=== PATIENT | male | born 1955 | race Caucasian/White ===

== ENCOUNTER 2016-08-29 06:36 | Day surgery (SDC) | payer OTHER ==
[~2016-08-29] VITALS: Ht 170.2 cm; Wt 106.7 kg
[~2016-08-29 06:36] MED LIST: ASPIRIN E.C. 8181 MG PO; ATACAND HCT 321 TAB PO; ATACAND32 MG PO; ATACAND4 MG PO; CARDI-OMEGA1000 MG PO; CELEBREX 200MG200 MG PO; CELEBREX50 MG PO; CENTRUM SILVER1 CTB PO; CHANTIX 1MG1 MG PO; CO Q-1030 MG PO; FISH OIL1000 MG PO; GLUCOSAMINE & C1 CA1 PO; HCTZ 25MG TAB25 MG PO; LIPITOR 40MG TA40 MG PO; NORVASC 10MG10 MG PO; PYRIDIUM 100MG100 MG PO; VITAMIN B121000 MC2 SL; VITAMIN B1225 MCG PO; VITAMIN D3400 I1 PO; VYTORIN 10 MG-21 TAB PO
[2016-08-29] MEDS ORDERED: ZOCOR 20MG20 MG PO (07:26)
[2016-08-29 07:36] VITALS: BP 120/88; PULSE 75; TEMP 97.9
[2016-08-29 09:15] VITALS: BP 96/77; PULSE 71; TEMP 97.5
[2016-08-29 09:30] VITALS: BP 107/63; PULSE 80
[2016-08-29 09:45] VITALS: BP 107/68; PULSE 81
[2016-08-29 14:54] VITALS: BP 105/69; PULSE 60
== END 2016-08-29 09:50 | disposition home or self-care (01) ==
LOC: SDCO 06:36
DX: Z12.11 Encounter for screening for malignant neoplasm of colon (principal); K63.5 Polyp of colon; Z86.010 Personal history of colon polyps; I10 Essential (primary) hypertension; E78.00 Pure hypercholesterolemia, unspecified
CPT/HCPCS: J2250; J3010; J7030